=== PATIENT | female | born 1980 | race African-American/Black ===

== ENCOUNTER 2018-11-07 14:27 | Inpatient (IN) ==
[2018-11-07] MEDS ORDERED: LACTATED RINGERS 500 ML IV PRN (14:47)
[2018-11-07] MEDS ORDERED: LACTATED RINGERS 250 ML IV ONE (14:47)
[2018-11-07] MEDS ORDERED: ONDANSETRON 4 MG/2 ML VIAL IV PRN (14:47)
[2018-11-07] MEDS ORDERED: PENICILLIN G POTASSIUM INJ 5,000,000 UNIT in SODIUM CHLORIDE 0.9% 100 ML IV ONE (15:14)
[2018-11-07 15:18] LABS: Basophils % 0.3 % (0.0-0.8); Eosinophils # 0.5 10*3/uL (0.0-0.87); Eosinophils % 6.3 % (0.00-10.9); Hematocrit 29.7 VOL% (35.7-47.0); Immature Granulocytes % 0.4 %; Immature Granulocytes Absolute 0.03 #; Lymphocytes # 2.1 10*3/uL (1.4-4.0); Lymphocytes % 28.2 % (21.3-54.2); Mean Corpuscular HGB Conc 33.7 GM/DL (32-36); Mean Corpuscular Volume 91.4 FL (87-102); Mean Platelet Volume 9.9 FL (9.6-12.0); Monocytes % 6.5 % (1.7-12.7); Neutrophils % 58.3 % (38.7-73.9); Platelet Count 297 T/CUMM (130-400); Red Blood Count 3.25 MC/CUMM (3.8-5.5); Red Cell Distribution Width 14.8 % (9.3-17.3); White Blood Count 7.3 T/CUMM (4-12)
[2018-11-07] MEDS ORDERED: OXYTOCIN/LR 20 UNIT/1,000 ML BAG IV SCH (15:30)
[2018-11-07] MEDS: LACTATED RINGERS 1,000 ML IV SCH (15:31)
[2018-11-07] MEDS ORDERED: TERBUTALINE 1 MG/1 ML VIAL SUBCUT ONE (17:38)
[2018-11-07] MEDS ORDERED: TERBUTALINE 1 MG/1 ML VIAL SUBCUT PRN (17:41)
[2018-11-07] MEDS ORDERED: ONDANSETRON 4 MG/2 ML VIAL IV ONE (17:52)
[2018-11-07] MEDS ORDERED: CITRIC ACID/SODIUM CITRATE 30 ML UDCUP PO ONE (17:52)
[2018-11-07] MEDS ORDERED: FAMOTIDINE 20 MG/2 ML VIAL IV ONE (17:52)
[2018-11-07] MEDS ORDERED: hydrOXYzine HCL 25 MG/1 ML VIAL IM PRN (17:52)
[2018-11-07] MEDS ORDERED: PROMETHAZINE 25 MG/1 ML VIAL IM ONE (17:52)
[2018-11-07] MEDS ORDERED: NALOXONE 0.4 MG/ML VIAL IV PRN (17:52)
[2018-11-07] MEDS ORDERED: diphenhydrAMINE 50 MG/1 ML VIAL IV PRN ×2 (17:52)
[2018-11-07] MEDS ORDERED: ePHEDrine 50 MG/ML AMP IV PRN (17:52)
[2018-11-07] MEDS ORDERED: fentaNYL 2 MCG/ROPIV 0.2% EPID 100 ML EPIDURAL SCH (18:00)
[2018-11-07] MEDS ORDERED: PHENYLEPHRINE 1 MG/10 ML SYRINGE IV ONE (18:03)
[2018-11-07] MEDS ORDERED: MORPHINE 10 MG/10 ML VIAL ONE (18:03)
[2018-11-07] MEDS ORDERED: fentaNYL 100 MCG/2 ML VIAL ONE (18:03)
[2018-11-07] MEDS ORDERED: BUPIVACAINE 0.25% 50 ML VIAL ONE (18:03)
[2018-11-07] MEDS ORDERED: BUPIVACAINE SPINAL 0.75% 2 ML AMP SPINAL ONE (18:04)
[2018-11-07] MEDS ORDERED: DEXAMETHASONE 4 MG/1 ML VIAL ONE (18:04)
[2018-11-07] MEDS ORDERED: EPINEPHrine 1 MG/ML VIAL ONE (18:04)
[2018-11-07] MEDS ORDERED: ceFAZolin 2,000 MG in SYRINGE 1 EACH IV ONE ×2 (18:08→18:17)
[2018-11-07 18:29] LABS: Apearance,Urine CLEAR (Clear); Barbiturates Screen,Urine Negative (Negative); Benzodiazepines Screen,Urine Negative (Negative); Bilirubin,Urine Negative (Negative); Blood, Urine Negative (Negative); Cannabinoid Screen,Urine Negative (Negative); Glucose,Urine (UA) Negative (Negative); Hyaline Casts,Urine 1 /LPF (0-3); Ketones,Urine Negative (Negative); Mucus,Urine Occasional /LPF (Occasional); Nitrite,Urine Negative (Negative); Opiate Screen,Urine Negative (Negative); Phencyclidine Screen,Urine Negative (Negative); Protein,Urine Negative; RBC,Urine 1 /HPF (0-4); Squamous Epithelial Cell,Urine Occasional /HPF (0-10); Urine Color Straw (Yellow); Urine Specific Gravity 1.011 (1.001-1.035); Urine Urobilinogen < 2.0 EU/DL (0.2-1.0); WBC,Urine 1 /HPF (0-6)
[2018-11-07] MEDS ORDERED: PENICILLIN G POTASSIUM INJ 2,500,000 UNIT in SODIUM CHLORIDE 0.9% 100 ML IV SCH (20:00)
[2018-11-07] MEDS ORDERED: TISSUE ADHESIVE 1 EACH APPLICATOR TOP ONE (20:14)
[2018-11-07] MEDS ORDERED: MIDAZOLAM 2 MG/2 ML VIAL ONE (20:51)
[2018-11-07] MEDS ORDERED: GLYCOPYRROLATE 0.4 MG/2 ML VIAL ONE (20:52)
[2018-11-07] MEDS ORDERED: PROPOFOL 200 MG/20 ML VIAL IV ONE (20:52)
[2018-11-07] MEDS ORDERED: KETAMINE 500 MG/10 ML VIAL ONE (20:52)
[2018-11-07] MEDS ORDERED: HYDROmorphone 2 MG/1 ML VIAL IV PRN (22:03)
[2018-11-08] MEDS: ceFAZolin 1,000 MG in SYRINGE 1 EACH IV SCH ×2 (02:58→11:45)
[2018-11-08] MEDS: LACTATED RINGERS 1,000 ML IV SCH (06:06)
[2018-11-08 06:32] LABS: Basophils % 0.3 % (0.0-0.8); Eosinophils # 0.2 10*3/uL (0.0-0.87); Eosinophils % 1.6 % (0.00-10.9); Hematocrit 26.7 VOL% (35.7-47.0); Hemoglobin 8.9 GM/DL (12.0-16.0); Immature Granulocytes % 0.7 %; Immature Granulocytes Absolute 0.08 #; Lymphocytes # 2.3 10*3/uL (1.4-4.0); Lymphocytes % 20.9 % (21.3-54.2); Mean Corpuscular HGB Conc 33.3 GM/DL (32-36); Mean Corpuscular Volume 91.1 FL (87-102); Mean Platelet Volume 9.9 FL (9.6-12.0); Monocytes % 6.5 % (1.7-12.7); Platelet Count 280 T/CUMM (130-400); Red Blood Count 2.93 MC/CUMM (3.8-5.5); Red Cell Distribution Width 15.1 % (9.3-17.3)
[2018-11-08] MEDS: DOCUSATE SODIUM 100 MG CAPSULE PO SCH ×2 (08:07→20:40)
[2018-11-08] MEDS: IBUPROFEN 800 MG TABLET PO PRN ×2 (09:21→22:50)
[2018-11-08] MEDS: SIMETHICONE CHEW 80 MG TABLET PO PRN ×2 (09:22→16:08)
[2018-11-08] MEDS: MAGNESIUM HYDROXIDE SUSP 30 ML UDCUP PO PRN (23:11)
[2018-11-09] MEDS: DOCUSATE SODIUM 100 MG CAPSULE PO SCH ×2 (09:03→21:21)
[2018-11-09] MEDS: IBUPROFEN 800 MG TABLET PO PRN ×2 (12:06→21:21)
[2018-11-09] MEDS: MAGNESIUM HYDROXIDE SUSP 30 ML UDCUP PO PRN (12:06)
[2018-11-09] MEDS ORDERED: MAGNESIUM CITRATE 300 ML BOTTLE PO ONE (14:48)
[2018-11-10] MEDS: SIMETHICONE CHEW 80 MG TABLET PO PRN (03:21)
[2018-11-10] MEDS: MAGNESIUM HYDROXIDE SUSP 30 ML UDCUP PO PRN (09:19)
[2018-11-10] MEDS: DOCUSATE SODIUM 100 MG CAPSULE PO SCH ×2 (09:19→21:00)
[2018-11-10] MEDS ORDERED: ONDANSETRON 4 MG/2 ML VIAL IV PRN (13:28)
[2018-11-10] MEDS: DEXTROSE 5% LACTATED RINGERS 1,000 ML IV SCH (14:03)
[2018-11-10 15:24] LABS: Basophils % 0.2 % (0.0-0.8); Eosinophils # 0.1 10*3/uL (0.0-0.87); Hematocrit 23.4 VOL% (35.7-47.0); Hemoglobin 7.8 GM/DL (12.0-16.0); Immature Granulocytes % 0.9 %; Lymphocytes # 2.2 10*3/uL (1.4-4.0); Lymphocytes % 19.9 % (21.3-54.2); Mean Corpuscular HGB Conc 33.3 GM/DL (32-36); Mean Corpuscular Volume 92.1 FL (87-102); Mean Platelet Volume 10.2 FL (9.6-12.0); Platelet Count 322 T/CUMM (130-400); Red Blood Count 2.54 MC/CUMM (3.8-5.5); Red Cell Distribution Width 15.3 % (9.3-17.3); White Blood Count 11.1 T/CUMM (4-12)
[2018-11-10 15:46] LABS: Alanine Aminotransferase 18 U/L (13-56); Albumin 2.3 G/DL (3.4-5.0); Alkaline Phosphatase 99 U/L (45-117); Aspartate Amino Transferase 20 U/L (0-37); Bilirubin,Total < 0.39 MG/DL (0.2-1.0); Blood Urea Nitrogen 9 MG/DL (7-18); Calcium 8.5 MG/DL (8.5-10.1); Glucose 107 MG/DL (74-106); Osmolality,Calculated 277.4 MOS/KG (273-304); Total Protein 5.9 G/DL (6.4-8.3)
[2018-11-10] MEDS: IBUPROFEN 800 MG TABLET PO PRN (20:01)
[2018-11-11] MEDS: DEXTROSE 5% LACTATED RINGERS 1,000 ML IV SCH ×2 (01:06→11:07)
[2018-11-11] MEDS: IBUPROFEN 800 MG TABLET PO PRN (04:35)
[2018-11-11 09:16] LABS: Albumin 2.1 G/DL (3.4-5.0); Bilirubin,Total 0.4 MG/DL (0.2-1.0); Calcium 8.1 MG/DL (8.5-10.1); Total Protein 5.3 G/DL (6.4-8.3)
[2018-11-11] MEDS: DOCUSATE SODIUM 100 MG CAPSULE PO SCH ×2 (09:30→22:00)
[2018-11-11] MEDS: POLYETHYLENE GLYCOL POWDER 17 GM PACK PO SCH (11:06)
[2018-11-12] MEDS: POLYETHYLENE GLYCOL POWDER 17 GM PACK PO SCH (09:05)
[2018-11-12] MEDS: DOCUSATE SODIUM 100 MG CAPSULE PO SCH ×2 (09:05→20:11)
[2018-11-12] MEDS: IBUPROFEN 800 MG TABLET PO PRN (17:10)
[2018-11-13 06:37] LABS: Alanine Aminotransferase 16 U/L (13-56); Albumin 2.2 G/DL (3.4-5.0); Alkaline Phosphatase 82 U/L (45-117); Aspartate Amino Transferase 15 U/L (0-37); Bilirubin,Total < 0.39 MG/DL (0.2-1.0); Blood Urea Nitrogen 11 MG/DL (7-18); Calcium 8.1 MG/DL (8.5-10.1); Glucose 71 MG/DL (74-106); Osmolality,Calculated 279.1 MOS/KG (273-304); Total Protein 5.6 G/DL (6.4-8.3)
[2018-11-13 07:24] VITALS: BP 103/62
[2018-11-13] MEDS: DOCUSATE SODIUM 100 MG CAPSULE PO SCH (09:41)
[2018-11-13] MEDS: IBUPROFEN 800 MG TABLET PO PRN (09:42)
[2018-11-13] MEDS: POLYETHYLENE GLYCOL POWDER 17 GM PACK PO SCH (10:12)
== END 2018-11-13 11:05 | disposition home or self-care (01) | DRG 540 ==
LOC: N.LDOUT 14:27 → N.LD 14:29 → N.OB 23:18
PROVIDERS: ADMIT Obstetrics & Gynecology; ATTEND Obstetrics & Gynecology
PROC: LDCSECT (ICD-10-PCS; 2018-11-07 16:00)